=== PATIENT | female | born 1945 | race Caucasian/White ===

== ENCOUNTER 2016-11-13 08:53 | Outpatient (CLI) | payer MEDICARE, OTHER | END 2016-11-13 08:54 | disposition home or self-care (01) | DX: Z12.31 Encounter for screening mammogram for malignant neoplasm of breast (principal) ==

== ENCOUNTER 2016-11-13 09:13 | Outpatient (CLI) | payer MEDICARE, OTHER | END 2016-11-13 09:14 | disposition home or self-care (01) | DX: Z13.820 Encounter for screening for osteoporosis (principal); M85.88 Other specified disorders of bone density and structure, other site; N95.8 Other specified menopausal and perimenopausal disorders ==

== ENCOUNTER 2017-02-19 14:56 | Outpatient (CLI) | payer MEDICARE, OTHER ==
--- NOTE | 2017-02-20 12:22 | XRAY Report ---
REVISED: THIS REPORT WAS ORIGINALLY SIGNED ON 02/20/2017 @ 1235. ORDERING PROVIDER FIELD REVISED ON 02/25/2017. BILATERAL HIPS AND PELVIS: 02/19/2017 CLINICAL INDICATION: Hip pain, on prednisone. FINDINGS: Frontal view of the hips and pelvis and bilateral frogleg lateral views of the hips demonstrate mild bilateral hip osteoarthritis. Postoperative changes are seen in the pelvis and lumbar spine. There is no evidence of acute fracture or dislocation. IMPRESSION: MILD BILATERAL HIP OSTEOARTHRITIS. JOB #: [id number] EXT JOB #: [id number] MTDD
== END 2017-02-19 14:57 | disposition home or self-care (01) ==
LOC: DI 14:56
PROVIDERS: ATTEND Internal Medicine
DX: M16.0 Bilateral primary osteoarthritis of hip (principal); Z79.52 Long term (current) use of systemic steroids
CPT/HCPCS: 73521

== ENCOUNTER 2019-01-06 16:53 | Outpatient (CLI) | payer MEDICARE, OTHER ==
--- NOTE | 2019-01-07 09:04 | Mammography Report ---
Reason: SCREENING MAMMO Procedure Date: 01/06/2019 Accession Number: [id number] / [id number] Procedure: FRANKIE - Screening Mammo w/Sushant CPT Code: FULL RESULT: EXAM: Screening Mammo w/Sushant DATE: 01/06/2019 5:19 PM CLINICAL HISTORY: Screening encounter. History of estrogen therapy from 1976 until 1993. TECHNIQUE: (B) - Bilateral CC and MLO views were obtained. COMPARISON: 11/13/2016 through 06/28/2013. PARENCHYMAL PATTERN: (A) - The breast(s) demonstrate(s) scattered fibroglandular densities. FINDINGS: There are coarse typically benign calcifications. Postsurgical changes consistent with previous implant placement and subsequent removal are stable. There are no suspicious masses, calcifications, or areas of distortion. IMPRESSION: Benign findings. BI-RADS category 2. RECOMMENDATION: (ANNUAL) - Recommend routine annual screening mammography. BI-RADS CATEGORY: (2) - Benign Findings. STANDARD QUALIFYING STATEMENTS: 1. This examination was not reviewed with the aid of Computer-Aided Detection (CAD). 2. A negative or benign imaging report should not preclude biopsy if clinically suspicious findings are present. 3. Dense breasts may obscure an underlying neoplasm. 4. This examination was reviewed with the aid of 3D breast imaging (tomosynthesis).
== END 2019-01-06 16:54 | disposition home or self-care (01) ==
LOC: DI 16:53
DX: Z12.31 Encounter for screening mammogram for malignant neoplasm of breast (principal)
CPT/HCPCS: 77063; 77067

== ENCOUNTER 2019-03-02 | Emergency (ER) | payer MEDICARE, OTHER | END 2019-03-02 08:33 | disposition home or self-care (01) | DX: N30.00 Acute cystitis without hematuria (principal) | CPT/HCPCS: 81001; 87077; 87086; 87181; 99283; A9270; 81003 ==

== ENCOUNTER 2019-03-04 11:05 | Emergency (ER) | payer MEDICARE, OTHER ==
[2019-03-04 12:04] LABS: GLUCOSE, URINE (UA) NEGATIVE (NEGATIVE); KETONES,URINE (UA) NEGATIVE (NEGATIVE); LEUKOCYTE ESTERASE, URINE TRACE (NEGATIVE); NITRITE,URINE POSITIVE (NEGATIVE); OCCULT BLOOD,URINE LARGE (NEGATIVE); PROTEIN,URINE 100 mg/dL (NEGATIVE); UROBILINOGEN,URINE 0.2 (NORMAL) E.U./dL (NORMAL)
[2019-03-04 12:06] LABS: BILIRUBIN,URINE NEGATIVE (NEGATIVE); CLARITY,URINE CLOUDY (CLEAR); ICTOTEST,URINE NEGATIVE
[2019-03-04 12:37] LABS: AMORPHOUS SEDIMENT,UR Moderate /LPF; BACTERIA,URINE Few /HPF (None Seen); RBC,URINE TNTC /HPF (0-5); SQUAMOUS EPITHELIAL CELL,UR FEW Squamous (<= Few)
[2019-03-04 12:40] LABS: BASOPHILS # (AUTO) 0.1 10^3/uL (0.0-0.1); BASOPHILS % (AUTO) 0.6 %; EOSINOPHILS # (AUTO) 0.4 10^3/uL (0.0-0.7); EOSINOPHILS % (AUTO) 3.6 %; HGB - HEMOGLOBIN 13.4 g/dL (12.0-16.0); LYMPHOCYTES % (AUTO) 18.2 %; MEAN CORPUSCULAR HEMOGLOBIN 30.2 pg (27.0-31.0); MEAN CORPUSCULAR HGB CONC 31.9 g/dL (32.0-36.0); MEAN CORPUSCULAR VOLUME 94.8 fL (81.0-99.0); MEAN PLATELET VOLUME 9.1 fL (7.9-10.8); MONOCYTES # (AUTO) 0.5 10^3/uL (0.0-1.0); MONOCYTES % (AUTO) 4.6 %; NEUTROPHILS # (AUTO) 7.8 10^3/uL (1.5-6.6); NEUTROPHILS % (AUTO) 72.1 %; PLT - PLATELET COUNT 378 10^3/uL (130-450); RED BLOOD COUNT 4.43 10^6/uL (4.20-5.40); RED CELL DISTRIBUTION WIDTH 12.3 % (12.0-15.0); WHITE BLOOD COUNT 10.8 x10^3/uL (4.8-10.8)
[2019-03-04] MEDS ORDERED: ONDANSETRON 4 MG/2 ML VIAL IVP STA (12:50)
[2019-03-04] MEDS ORDERED: SODIUM CHLORIDE 0.9% 1,000 ML IV ONE (12:50)
[2019-03-04] MEDS ORDERED: cefTRIAXone 1 GM VIAL IVP STA (12:51)
--- NOTE | 2019-03-04 12:51 | ED Physician Documentation ---
PD HPI NVD - Stated complaint Stated Complaint: VOMITING - Chief complaint Chief Complaint: Abd Pain - History obtained from History obtained from: Patient - History of Present Illness Timing - onset: Yesterday, How many days ago (2-3) Timing - details: Gradual onset, Still present (she was seen for UTI and had some nausea prior to that. Given Rx for bactrim and zofran. Zofran not helping and she felt more nauseated with vomiting after taking the bactrim. Having emesis the past 2 days. Keeping some sips down.) Associated symptoms: Fever (2 days ago), Loss of appetite, Dysuria (still with UTI symptoms, as felt was vomiting the bactrim.). No: Abdominal pain, Near syncope / syncope Contributing factors: No: Sick contact, Bad food Similar symptoms before: Has not had sx before Recently seen: Emergency Dept (for UTI with nausea.) Review of Systems Constitutional: reports: Fever. denies: Myalgias Nose: denies: Rhinorrhea / runny nose, Congestion Throat: denies: Sore throat GI: reports: Nausea, Vomiting. denies: Diarrhea : reports: Dysuria, Frequency. denies: Hematuria Neurologic: reports: Generalized weakness. denies: Focal weakness, Numbness PD PAST MEDICAL HISTORY - Past Medical History Cardiovascular: None Respiratory: None Neuro: None Endocrine/Autoimmune: None : Chronic bladder infection, Renal insuffiency, Kidney stones - Past Surgical History Past Surgical History: Yes General: Hiatal hernia repair Ortho: Rotator cuff repair, Shoulder arthroplasty - Present Medications Home Medications: Ambulatory Orders Medication Instructions Recorded Confirmed Alprazolam [Alprazolam Xr] 0.5 mg PO PRN PRN 09/24/13 03/02/19 DULoxetine [Cymbalta] 60 mg PO DAILY 09/24/13 03/02/19 Simvastatin [Zocor] 10 mg PO DAILY 09/24/13 03/02/19 Hydrocodone/Acetaminophen 1 each PO QID 03/02/19 03/02/19 [Hydrocodon-Acetaminoph 7.5-325] Ondansetron Odt [Zofran] 4 mg TL Q6H PRN #10 tablet 03/02/19 Sulfamethox/Trimeth 800/160 1 each PO BID #14 tablet 03/02/19 [Bactrim Ds 800/160] Ciprofloxacin HCl [Cipro] 500 mg PO BID #14 tablet 03/04/19 Promethazine [Phenergan] 25 mg PO Q6H PRN #15 tab 03/04/19 - Allergies Allergies/Adverse Reactions: Allergies Allergy/AdvReac Type Severity Reaction Status Date / Time No Known Drug Allergies Allergy Verified 03/04/19 11:13 - Social History Does the pt smoke?: No Smoking Status: Never smoker Does the pt drink ETOH?: Yes Does the pt have substance abuse?: No - Immunizations Immunizations are current?: Yes PD ED PE NORMAL - Vitals Vital signs reviewed: Yes - General General: Alert and oriented X 3, No acute distress, Well developed/nourished - HEENT HEENT: Pharynx benign - Neck Neck: Supple, no meningeal sign, No adenopathy - Cardiac Cardiac: RRR, No murmur - Respiratory Respiratory: Clear bilaterally - Abdomen Abdomen: Soft, Non tender - Back Back: No CVA TTP - Derm Derm: Normal color, Warm and dry - Neuro Neuro: Alert and oriented X 3, No motor deficit, Normal speech Results - Vitals Vitals: Oxygen O2 Source Room air - Labs Labs: Microbiology 03/04/19 11:30 Urine Culture - Preliminary Urine,Clean Catch Laboratory Tests 03/04/19 03/04/19 03/04/19 11:30 12:32 12:32 WBC 10.8 RBC 4.43 Hgb 13.4 Hct 42.0 MCV 94.8 MCH 30.2 MCHC 31.9 L RDW 12.3 Plt Count 378 MPV 9.1 Neut # (Auto) 7.8 H Lymph # (Auto) 2.0 [place] # (Auto) 0.5 Eos # (Auto) 0.4 Baso # (Auto) 0.1 Absolute Nucleated RBC 0.00 Nucleated RBC % 0.0 Sodium 136 Potassium 4.9 Chloride 99 L Carbon Dioxide 24 Anion Gap 13.0 BUN 20 Creatinine 1.2 H Estimated GFR (MDRD) 44 L Glucose 147 H Calcium 9.6 Total Bilirubin 0.5 AST 24 ALT 36 Alkaline Phosphatase 112 Total Protein 8.2 Albumin 4.3 Globulin 3.9 Albumin/Globulin Ratio 1.1 Lipase 34 Urine Color BROWN Urine Clarity CLOUDY Urine pH 5.0 Ur Specific [place] >=1.030 H Urine Protein 100 H Urine Glucose (UA) NEGATIVE Urine Ketones NEGATIVE Urine Occult Blood LARGE H Urine Nitrite POSITIVE H Urine Bilirubin NEGATIVE Urine Urobilinogen 0.2 (NORMAL) Ur Leukocyte Esterase TRACE H Urine RBC TNTC H Urine WBC 6-10 H Ur Squamous Epith Cells FEW Squamous Amorphous Sediment Moderate Urine Bacteria Few Ur Microscopic Review INDICATED Urine Culture Comments INDICATED PD MEDICAL DECISION MAKING - ED course Complexity details: re-evaluated patient (improved with IV fluids and meds. Able to take oral fluids now. ), considered differential, d/w patient Departure - Departure Disposition: 01 Home, Self Care Clinical Impression: Urinary tract infection Qualifiers: Urinary tract infection type: acute cystitis Hematuria presence: without hematuria Qualified Code(s): N30.00 - Acute cystitis without hematuria Nausea & vomiting Qualifiers: Vomiting type: unspecified Vomiting Intractability: intractable Qualified Code(s): R11.2 - Nausea with vomiting, unspecified Condition: Stable Record reviewed to determine appropriate education?: Yes Instructions: ED UTI Cystitis Female, ED Nausea Vomiting Follow-Up: Warren Park MD [Primary Care Provider] - Prescriptions: Ciprofloxacin HCl [Cipro] 500 mg PO BID #14 tablet Promethazine [Phenergan] 25 mg PO Q6H PRN #15 tab PRN Reason: Nausea / Vomiting Comments: Small frequent cysts fluids. [place] food for the next day or 2. Ondansetron or promethazine as needed for nausea. Stop the Bactrim antibiotic and change to Cipro ofloxacin, since she said that has worked well for you in the past. Recheck if still not improved over the next couple of days. Discharge Date/Time: 03/04/19 15:31
[2019-03-04 12:54] LABS: ALBUMIN 4.3 g/dL (3.2-5.5); ALBUMIN/GLOBULIN RATIO 1.1 (1.0-2.2); BILIRUBIN,TOTAL 0.5 mg/dL (0.2-1.0); CALCIUM 9.6 mg/dL (8.5-10.3); CREATININE 1.2 mg/dL (0.4-1.0); TOTAL PROTEIN 8.2 g/dL (6.7-8.2)
[2019-03-04] MEDS ORDERED: FAMOTIDINE 20 MG/2 ML VIAL IVP STA (14:02)
[2019-03-04] MEDS ORDERED: PROMETHAZINE INJ 25 MG in SODIUM CHLORIDE 0.9% 50 ML IV STA (14:02)
[2019-03-04 15:26] VITALS: BP 119/68
== END 2019-03-04 15:31 | disposition home or self-care (01) ==
LOC: ED 11:05
DX: N30.00 Acute cystitis without hematuria (principal); R11.2 Nausea with vomiting, unspecified
CPT/HCPCS: 36415; 80053; 81001; 83690; 85025; 87077; 87086; 87181; 96361; 96365; 96375; 99284; J7040; 81003

== ENCOUNTER 2020-04-13 14:10 | Outpatient (CLI) | payer MEDICARE, OTHER | END 2020-04-13 14:11 | disposition home or self-care (01) | LOC: COV 14:10 | PROVIDERS: ATTEND Ophthalmology | DX: Z01.818 Encounter for other preprocedural examination (principal); H25.812 Combined forms of age-related cataract, left eye; Z20.828 Contact with and (suspected) exposure to other viral communicable diseases ==

== ENCOUNTER 2020-04-19 09:26 | Day surgery (SDC) | payer MEDICARE, OTHER ==
[~2020-04-19 09:26] MED LIST: CYCLOPENTOLATE 1% OPHTH DROPS 2 ML ONE; KETOROLAC 0.45% OPHTH DROPS ONE; PHENYLEPHRINE 2.5% OPHTH 2 ML DROPS ONE; PROPARACAINE 0.5% OPHTH DROPS 15 ML ONE
[2020-04-19] MEDS ORDERED: MIDAZOLAM 2 MG/2 ML VIAL IVP ONE (09:27)
[2020-04-19] MEDS ORDERED: LACTATED RINGERS 500 ML IV ONE ×2 (10:05→11:01)
--- NOTE | 2020-04-19 10:08 | ANESTHESIA ---
Pre-Anesthesia VS, & Labs - Diagnosis left cataract - Procedure left CATIOL Height: 5 ft 4 in Weight (kg): 73.5 kg Body Mass Index: 27.8 BMI Classification: Overweight - NPO >8 hours - Is Patient ?: No Home Medications and Allergies Home Medications: Ambulatory Orders Diphenoxylate/Atropine [Lomotil] 1 PRN 04/19/20 Alprazolam [Alprazolam Xr] 0.5 mg PO PRN PRN 09/24/13 DULoxetine [Cymbalta] 60 mg PO DAILY 09/24/13 Simvastatin [Zocor] 10 mg PO DAILY 09/24/13 Hydrocodone/Acetaminophen [Hydrocodon-Acetaminoph 7.5-325] 1 each PO QID 03/02/19 Diphenoxylate/Atropine [Lomotil] 1 PRN 04/19/20 Allergies/Adverse Reactions: Allergies Allergy/AdvReac Type Severity Reaction Status Date / Time No Known Drug Allergies Allergy Verified 03/04/19 11:13 Anes History & Medical History - Anesthetic History Anesthesia Complications: reports: No previous complications Family history of Anesthesia Complications: Denies Family history of Malignant Hyperthermia: Denies - Medical History Cardiovascular: reports: High cholesterol, Arrhythmia Pulmonary: reports: None Gastrointestinal: reports: None Urinary: reports: Kidney stones Neuro: reports: None Musculoskeletal: reports: Osteoarthritis, Fibromyalgia Endocrine/Autoimmune: reports: None Skin: reports: None Smoking Status: Never smoker - Surgical History General: Bowel surgery, Other Urologic: Ureterolithotomy (stones) Gynecologic: Hysterectomy Orthopedic: Rotator cuff repair, Shoulder arthroplasty, Spine surgery Exam General: Alert, Oriented x3, Cooperative, No acute distress Dental: WNL Mouth Openin Fingerbreadth Neck Mobility: Normal Mallampati classification: II Respiratory: Lungs clear, Normal breath sounds, No respiratory distress, No accessory muscle use Cardiovascular: Regular rate, Normal S1, Normal S2, No murmurs Plan Anesthesia Type: MAC Consent for Procedure(s) Verified and Reviewed: Yes Code Status: Attempt Resuscitation ASA classification: 2-Mild systemic disease Is this case an emergency?: No
[2020-04-19] MEDS ORDERED: BRIMONIDINE 0.2% OPHTH DROPS 5 ML OPTH ONE (10:54)
[2020-04-19] MEDS ORDERED: CHONDR SULF/HYALURONATE SYRINGE IO ONE (10:54)
[2020-04-19] MEDS ORDERED: TIMOLOL 0.5% OPHTH DROPS OPTH ONE (10:54)
[2020-04-19] MEDS ORDERED: EPINEPHrine 1 MG/ML AMP IR ONE (10:54)
[2020-04-19] MEDS ORDERED: TRIAMCIN/MOXIFLOX OPHTHALMIC 0.6 ML VIAL IO ONE (10:55)
[2020-04-19] MEDS ORDERED: BSS/LIDOCAINE/EPINEPHRINE 1 ML SYRINGE IO ONE (10:55)
[2020-04-19] MEDS ORDERED: PROPARACAINE 0.5% OPHTH DROPS 15 ML EACHEYE ONE (10:55)
[2020-04-19] MEDS ORDERED: VANCOMYCIN OPHTHALMI 8MG/0.8ML 8 MG/0.8 ML SYRINGE IO ONE (10:55)
[2020-04-19 11:20] VITALS: BP 107/51
--- NOTE | 2020-04-19 11:47 | ANESTHESIA POST OP EVALUATION ---
Anesthesia Post Eval - Post Anesthesia Eval Vitals: Last Vital Signs Temp 36.2 C L 04/19/20 11:19 Pulse 92 04/19/20 11:19 Resp 16 04/19/20 11:19 BP 107/51 L 04/19/20 11:19 Pulse Ox 97 04/19/20 11:19 CV Function Including HR & BP: positive: Stable Pain Control: positive: Satisfactory Nausea & Vomiting: positive: Negative Mental Status: positive: Baseline Respiratory Status: Airway Patent Hydration Status: Satisfactory Anesthesia Complications: positive: None
[2020-04-19] MEDS ORDERED: BSS/LIDOCAINE/EPINEPHRINE 1 ML SYRINGE ONE (12:28)
[2020-04-19] MEDS ORDERED: TIMOLOL 0.5% OPHTH DROPS ONE (12:28)
[2020-04-19] MEDS ORDERED: BRIMONIDINE 0.2% OPHTH DROPS 5 ML ONE (12:29)
--- NOTE | 2020-04-19 12:52 | OPERATIVE REPORT ---
DATE OF SERVICE: 04/19/2020 Physician: Buzz Low MD PREOPERATIVE DIAGNOSIS: Visually significant cataract, left eye. This was her first cataract surger y. POSTOPERATIVE DIAGNOSIS: Visually significant cataract, left eye. This was her first cataract surge ry. PROCEDURE: Phacoemulsification with posterior chamber intraocular lens implant, left eye. SURGEON: Buzz Low MD ANESTHESIA: Monitored anesthesia care. COMPLICATIONS: None. OPERATIVE INDICATIONS: This is a 74-year-old woman with progressive vision loss in the left eye due to 2+ nuclear sclerotic and 2+ posterior subcapsular cataract. Best corrected visual acuity was 20/3 0, with glare to hand motion vision in the left eye. Indications for surgery were overall decrease i n vision, difficulty seeing words, closed caption or game scores on TV, difficulty seeing street sign s, difficulty driving in low light or at night, difficulty driving at night because of headlights fro m other vehicles, and difficulty with glare or bright lights in any situation. She was consented at length concerning risks and benefits of cataract surgery, after which she expressed a desire to proce ed with surgery. OPERATIVE PROCEDURE: Patient was taken to OR #3 and placed under monitored anesthesia care and surgi miroslava timeout was conducted confirming correct patient, correct procedure, and correct surgical site. She was given topical anesthesia, and prepped and draped in the usual sterile fashion. The eye was e ntered at the 6 and 3 o'clock positions. Intracameral Shugarcaine was injected into the anterior olivia mber, followed by Viscoat. A continuous-tear curvilinear capsulorrhexis was performed. The nucleus was hydrodissected and phacoemulsified. The cortex was evacuated using automated infusion and aspira tion. Provisc was injected in the capsular bag, and a 19.5 diopter intraocular lens was inserted int o the bag. Infusion and aspiration was used to evacuate the viscoelastic materials. The eye was inf lated to physiologic pressure using balanced salt solution and found to be watertight. Approximately 0.25 mL of a mixture of triamcinolone and moxifloxacin was injected transsclerally into the vitreous in the inferotemporal quadrant. An additional 0.55 mL of a mixture of triamcinolone, moxifloxacin a nd vancomycin was injected subconjunctivally in the superior quadrant for infection and inflammation prophylaxis. Wound integrity was checked with Weck-Delmis sponges. Patient was taken from the Operatin g Room in good condition and given postoperative instructions. TD: 04/19/2020 11:06
== END 2020-04-19 09:27 | disposition home or self-care (01) ==
LOC: SDS 09:26
PROVIDERS: ATTEND Ophthalmology
DX: H25.812 Combined forms of age-related cataract, left eye (principal); E78.00 Pure hypercholesterolemia, unspecified; M79.7 Fibromyalgia; F41.9 Anxiety disorder, unspecified; Z79.891 Long term (current) use of opiate analgesic; Z87.891 Personal history of nicotine dependence
CPT/HCPCS: 66984; A9270; J3490; J7120; V2632

== ENCOUNTER 2020-09-17 17:19 | Outpatient (CLI) | payer MEDICARE, OTHER | END 2020-09-17 17:20 | disposition home or self-care (01) | LOC: COV 17:19 | PROVIDERS: ATTEND Ophthalmology | DX: Z01.812 Encounter for preprocedural laboratory examination (principal); H43.819 Vitreous degeneration, unspecified eye; Z20.822 Contact with and (suspected) exposure to COVID-19 ==

== ENCOUNTER 2021-02-12 12:31 | Emergency (ER) | payer MEDICARE, OTHER ==
[2021-02-12 13:02] LABS: BASOPHILS # (AUTO) 0.1 10^3/uL (0.0-0.1); BASOPHILS % (AUTO) 0.5 %; EOSINOPHILS % (AUTO) 0.2 %; HCT - HEMATOCRIT 41.2 % (37.0-47.0); HGB - HEMOGLOBIN 13.2 g/dL (12.0-16.0); LYMPHOCYTES # (AUTO) 1.2 10^3/uL (1.5-3.5); LYMPHOCYTES % (AUTO) 6.1 %; MEAN CORPUSCULAR HEMOGLOBIN 29.9 pg (27.0-31.0); MEAN CORPUSCULAR VOLUME 93.2 fL (81.0-99.0); MEAN PLATELET VOLUME 8.9 fL (7.9-10.8); MONOCYTES # (AUTO) 1.1 10^3/uL (0.0-1.0); MONOCYTES % (AUTO) 5.5 %; NEUTROPHILS # (AUTO) 17.7 10^3/uL (1.5-6.6); NEUTROPHILS % (AUTO) 87.4 %; PLT - PLATELET COUNT 339 10^3/uL (130-450); RED BLOOD COUNT 4.42 10^6/uL (4.20-5.40); RED CELL DISTRIBUTION WIDTH 12.9 % (12.0-15.0); WHITE BLOOD COUNT 20.2 x10^3/uL (4.8-10.8)
[2021-02-12 13:05] LABS: SLIDE REVIEW? Indicated
[2021-02-12 13:13] LABS: BILIRUBIN,URINE NEGATIVE (NEGATIVE); CLARITY,URINE SL. CLOUDY (CLEAR); GLUCOSE, URINE (UA) NEGATIVE (NEGATIVE); KETONES,URINE (UA) NEGATIVE (NEGATIVE); LEUKOCYTE ESTERASE, URINE TRACE (NEGATIVE); NITRITE,URINE POSITIVE (NEGATIVE); OCCULT BLOOD,URINE LARGE (NEGATIVE); PROTEIN,URINE 30 mg/dL (NEGATIVE); UROBILINOGEN,URINE 0.2 (NORMAL) E.U./dL (NORMAL)
[2021-02-12 13:16] LABS: ALBUMIN 4.3 g/dL (3.2-5.5); ALBUMIN/GLOBULIN RATIO 1.3 (1.0-2.2); BILIRUBIN,TOTAL 0.7 mg/dL (0.2-1.0); CREATININE 1.2 mg/dL (0.4-1.0); POTASSIUM 4.4 mmol/L (3.5-5.0); TOTAL PROTEIN 7.7 g/dL (6.7-8.2)
[2021-02-12 13:17] LABS: RBC MORPHOLOGY (MULTIPLE) 1+ ANISOCYTOSIS (NORMAL)
[2021-02-12 13:21] LABS: BACTERIA,URINE Few /HPF (None Seen); RBC,URINE TNTC /HPF (0-5); SQUAMOUS EPITHELIAL CELL,UR FEW Squamous (<= Few)
--- NOTE | 2021-02-12 13:43 | ED Physician Documentation ---
History of Present Illness - Stated complaint Stated Complaint: FEMALE - Chief complaint Chief Complaint: Abd Pain - Additonal information Additional information: 75-year-old female presents the emergency department for evaluation of dysuria and right flank pain. Symptoms began last night. She did begin taking a leftover prescription for ciprofloxacin which she previously had. She does endorse a history of recurrent nephro and ureterolithiasis but reports that this pain feels different. She has been vomiting. Subjective fevers. She denies chest pain or shortness of air. Review of Systems Constitutional: reports: Fever, Myalgias. denies: Chills Eyes: reports: Reviewed and negative Nose: reports: Reviewed and negative Throat: reports: Reviewed and negative Cardiac: reports: Reviewed and negative Respiratory: reports: Reviewed and negative GI: reports: Abdominal Pain, Nausea, Vomiting, Reviewed and negative : reports: Dysuria, Frequency Skin: reports: Reviewed and negative Musculoskeletal: reports: Reviewed and negative PD PAST MEDICAL HISTORY - Past Medical History Cardiovascular: None Respiratory: None Neuro: None Endocrine/Autoimmune: None : Chronic bladder infection, Renal insuffiency, Kidney stones - Past Surgical History Past Surgical History: Yes General: Hiatal hernia repair Ortho: Rotator cuff repair, Shoulder arthroplasty - Present Medications Home Medications: Ambulatory Orders Medication Instructions Recorded Confirmed Alprazolam [Alprazolam Xr] 0.5 mg PO PRN PRN 09/24/13 02/12/21 DULoxetine [Cymbalta] 60 mg PO DAILY 09/24/13 02/12/21 Simvastatin [Zocor] 10 mg PO DAILY 09/24/13 02/12/21 Hydrocodone/Acetaminophen 1 each PO QID 03/02/19 02/12/21 [Hydrocodon-Acetaminoph 7.5-325] - Allergies Allergies/Adverse Reactions: Allergies Allergy/AdvReac Type Severity Reaction Status Date / Time No Known Drug Allergies Allergy Verified 02/12/21 12:33 - Social History Does the pt smoke?: No Smoking Status: Never smoker Does the pt drink ETOH?: Yes Does the pt have substance abuse?: No - Immunizations Immunizations are current?: Yes PD ED PE NORMAL - General General: Alert and oriented X 3, No acute distress - Neck Neck: Supple, no meningeal sign - Cardiac Cardiac: RRR, No murmur - Respiratory Respiratory: Clear bilaterally - Abdomen Abdomen: Normal bowel sounds, Soft. No: Non tender (Mild right flank tenderness without guarding or rebound.) - Back Back: No CVA TTP, No spinal TTP - Derm Derm: Normal color, Warm and dry - Extremities Extremities: No deformity - Neuro Neuro: Alert and oriented X 3 Results - Vitals Vitals: Vital Signs - 24 hr 02/12/21 02/12/21 02/12/21 12:33 14:38 16:00 Temperature 36.6 C Heart Rate 100 92 80 Respiratory 16 17 17 Rate Blood Pressure 134/58 H 110/58 L 102/54 L O2 Saturation 95 97 100 02/12/21 02/12/21 02/12/21 16:53 17:23 18:00 Temperature 38.4 C H 38.3 C H Heart Rate 94 93 90 Respiratory 16 17 18 Rate Blood Pressure 124/58 L 129/41 L 120/56 L O2 Saturation 96 95 94 02/12/21 02/12/21 02/12/21 18:30 19:00 19:30 Temperature Heart Rate 78 71 92 Respiratory 18 17 18 Rate Blood Pressure 118/45 L 127/62 121/50 L O2 Saturation 99 99 99 02/12/21 02/12/21 20:00 20:32 Temperature 37.7 C Heart Rate 94 93 Respiratory 17 Rate Blood Pressure 100/45 L 94/41 L O2 Saturation 97 96 Oxygen O2 Source Room air - Labs Labs: Laboratory Tests 02/12/21 02/12/21 02/12/21 12:50 12:57 12:57 WBC 20.2 H RBC 4.42 Hgb 13.2 Hct 41.2 MCV 93.2 MCH 29.9 MCHC 32.0 RDW 12.9 Plt Count 339 MPV 8.9 Neut # (Auto) 17.7 H Lymph # (Auto) 1.2 L [place] # (Auto) 1.1 H Eos # (Auto) 0.0 Baso # (Auto) 0.1 Absolute Nucleated RBC 0.00 Nucleated RBC % 0.0 Manual Slide Review Indicated RBC Morph Micro Appear 1+ ANISOCYTOSIS Sodium 137 Potassium 4.4 Chloride 102 Carbon Dioxide 19 L Anion Gap 16.0 H BUN 20 Creatinine 1.2 H Estimated GFR (MDRD) 44 L Glucose 222 H Lactic Acid Calcium 9.0 Total Bilirubin 0.7 AST 20 ALT 37 Alkaline Phosphatase 84 Total Protein 7.7 Albumin 4.3 Globulin 3.4 Albumin/Globulin Ratio 1.3 Lipase 25 Urine Color YELLOW Urine Clarity SL. CLOUDY Urine pH 5.0 Ur Specific [place] >=1.030 H Urine Protein 30 H Urine Glucose (UA) NEGATIVE Urine Ketones NEGATIVE Urine Occult Blood LARGE H Urine Nitrite POSITIVE H Urine Bilirubin NEGATIVE Urine Urobilinogen 0.2 (NORMAL) Ur Leukocyte Esterase TRACE H Urine RBC TNTC H Urine WBC 4-5 Ur Squamous Epith Cells FEW Squamous Urine Bacteria Few Ur Microscopic Review INDICATED Urine Culture Comments INDICATED Nasal Adenovirus (PCR) Nasal B. parapertussis DNA (PCR) Nasal Coronavir 229E PCR Nasal Coronavir HKU1 PCR Nasal Coronavir NL63 PCR Nasal Coronavir OC43 PCR Nasal Enterovir/Rhinovir PCR Nasal Influenza B PCR Nasal Influenza A PCR Nasal Parainfluen 1 PCR Nasal Parainfluen 2 PCR Nasal Parainfluen 3 PCR Nasal Parainfluen 4 PCR Nasal RSV (PCR) Nasal B.pertussis DNA PCR Nasal C.pneumoniae (PCR) [place] Human Metapneumo PCR Nasal M.pneumoniae (PCR) Nasal SARS-CoV-2 (PCR) 02/12/21 02/12/21 16:44 16:52 WBC RBC Hgb Hct MCV MCH MCHC RDW Plt Count MPV Neut # (Auto) Lymph # (Auto) [place] # (Auto) Eos # (Auto) Baso # (Auto) Absolute Nucleated RBC Nucleated RBC % Manual Slide Review RBC Morph Micro Appear Sodium Potassium Chloride Carbon Dioxide Anion Gap BUN Creatinine Estimated GFR (MDRD) Glucose Lactic Acid 1.4 Calcium Total Bilirubin AST ALT Alkaline Phosphatase Total Protein Albumin Globulin Albumin/Globulin Ratio Lipase Urine Color Urine Clarity Urine pH Ur Specific [place] Urine Protein Urine Glucose (UA) Urine Ketones Urine Occult Blood Urine Nitrite Urine Bilirubin Urine Urobilinogen Ur Leukocyte Esterase Urine RBC Urine WBC Ur Squamous Epith Cells Urine Bacteria Ur Microscopic Review Urine Culture Comments Nasal Adenovirus (PCR) NOT DETECTED Nasal B. parapertussis DNA (PCR) NOT DETECTED Nasal Coronavir 229E PCR NOT DETECTED Nasal Coronavir HKU1 PCR NOT DETECTED Nasal Coronavir NL63 PCR NOT DETECTED Nasal Coronavir OC43 PCR NOT DETECTED Nasal Enterovir/Rhinovir PCR NOT DETECTED Nasal Influenza B PCR NOT DETECTED Nasal Influenza A PCR NOT DETECTED Nasal Parainfluen 1 PCR NOT DETECTED Nasal Parainfluen 2 PCR NOT DETECTED Nasal Parainfluen 3 PCR NOT DETECTED Nasal Parainfluen 4 PCR NOT DETECTED Nasal RSV (PCR) NOT DETECTED Nasal B.pertussis DNA PCR NOT DETECTED Nasal C.pneumoniae (PCR) NOT DETECTED [place] Human Metapneumo PCR NOT DETECTED Nasal M.pneumoniae (PCR) NOT DETECTED Nasal SARS-CoV-2 (PCR) NOT DETECTED - Rads (name of study) Ct abd/pelvis Radiology: Final report received, See rad report, Other (Obstructing urinary stone in mid to distal right ureter with mild hydronephrosis. 2 additional stones within the renal pelvis. Mild right urothelial thickening and perinephric stranding nonspecific may be associated with pyelonephritis.) PD MEDICAL DECISION MAKING - ED course Complexity details: reviewed results, re-evaluated patient, d/w patient ED course: 75-year-old female presents emergency department for evaluation of acute right flank pain chills vomiting and concerned that she may have a urinary tract infection. She began taking ciprofloxacin yesterday. She does also have a history of previous right staghorn calculi that required lithotripsy about 4 ye ars ago and then for a brief period of time a right-sided nephrostomy tube. Today screening labs show fairly significant leukocytosis of 20,000. Patient does not have fever hypotension or tachycardia thus does not present as septic. Her urine is somewhat muddy to interpret as she has started taking antibiotics but is certainly nitrite positive with rare bacteria. She was given 1 g of ceftriaxone here. Given the history of previous nephrolithiasis a CT of the abdomen was obtained and it does show fairly large right proximal ureter stone with mild to moderate hydronephrosis. There is a small amount of perinephric stranding acute pyelonephritis is not ruled out. I have spoken with NNEKA montgomery at [facility] urology. They do accept the patient in transfer for planned stenting tomorrow at [facility]. Awaiting excepting hospitalist and bed. I have discussed the plan with the patient and her and they are in agreement. Appropriate COBRA paperwork will be completed. 1640: I have spoken with Dr. Lisa briceno at [facility] who has accepted patient. She has now developed a fever. Blood cx are pending. lactate is not elevated Departure - Departure Disposition: 02 Transfer Acute Care Hosp Clinical Impression: Urethral calculus Hydronephrosis Qualifiers: Hydronephrosis type: with ureteral calculous obstruction Qualified Code(s): N13.2 - Hydronephrosis with renal and ureteral calculous obstruction UTI (urinary tract infection) Qualifiers: Urinary tract infection type: acute cystitis Hematuria presence: with hematuria Qualified Code(s): N30.01 - Acute cystitis with hematuria Discharge Date/Time: 02/12/21 20:46
[2021-02-12] MEDS ORDERED: IOVERSOL 320 100 ML VIAL IVP ONE (13:51)
[2021-02-12] MEDS: HYDROmorphone 1 MG/ML CARPUJECT IVP STA ×3 (14:14→20:46)
[2021-02-12] MEDS: SODIUM CHLORIDE 0.9% 1,000 ML IV STA (14:14)
[2021-02-12] MEDS: IOVERSOL 320 100 ML VIAL IVP ONE (14:33)
[2021-02-12] MEDS: cefTRIAXone 1 GM in SODIUM CHLORIDE 0.9% MINIBAG 100 ML IV STA (15:01)
--- NOTE | 2021-02-12 15:11 | CT Report ---
PROCEDURE: Abdomen/Pelvis W INDICATIONS: dysuria, right flank pain; ? pyelo vs urolithia CONTRAST: IV CONTRAST: Optiray 320 ml: 100 PO CONTRAST: *NO PO CONTRAST TECHNIQUE: After the administration of intravenous contrast, 5 mm thick sections acquired from the diaphragms to the symphysis. 5 mm thick coronal and sagittal reformats were acquired. For radiation dose reducti on, the following was used: automated exposure control, adjustment of mA and/or kV according to vicente ent size. COMPARISON: None. FINDINGS: Image quality: There is metallic streak artifact from patient's surgical hardware in the lower lumbar spine. There are partially visualized calcified mediastinal and hilar lymph nodes as well as a calci fied nodule within the inferior right middle lobe consistent with sequelae of old granulomatous disea se. ABDOMEN: Lung bases: There are patchy small indistinct round glass opacities within the right lung base with c onfluence posteriorly in the right lower lobe. There is associated mild septal thickening. Heart size is normal. Solid organs: There is mild hypoattenuation of the liver compatible with mild fat infiltration. A ca lcified nodule in the right hepatic lobe is consistent sequelae of old granulomatous disease. Gallbla dder appears within normal limits without calcified gallstones. Biliary system is non dilated. Pancr eas enhances normally. No adrenal nodules. There is an uncertain stone within the mid to distal right ureter measuring up to 0.9 cm with associa suma mild right hydronephrosis. This demonstrates attenuation values of approximately 700-800 Hounsfie ld units. There are 2 additional urinary stones within the right renal pelvis, measuring up to 2.0 cm and 1.2 cm. These demonstrate attenuation values of approximately 500-600 Hounsfield units. There is mild urothelial thickening in the right renal cortical system as well as mild asymmetric right perin ephric stranding. No definite striated nephrograms. No intrarenal or perinephric fluid collections. N o left renal stones or left hydronephrosis. Left ureter is nondistended. Peritoneum and bowel: Postsurgical changes are demonstrated consistent with subtotal colectomy with ileorectal anastomosis. Bowel sutures are also demonstrated in the right mid abdomen. Bowel loops dem onstrate normal wall thickness. There is a mildly dilated segment of small bowel in the right mid abd omen with air-fluid levels without definite evidence of obstruction. The findings suggest a mild ileu s. No free fluid or air. Nodes and vessels: No retroperitoneal or mesenteric adenopathy by size criteria. Aorta and inferior vena cava are normal in size. Miscellaneous: No ventral hernias. PELVIS: Genitourinary: Bladder wall thickness is normal. Miscellaneous: No inguinal hernias or adenopathy. Bones: Postsurgical changes are demonstrated status post posterior fixation in the lower lumbar spin e at L4-S1. No suspicious bony lesions. No vertebral body compression fractures. IMPRESSION: 1. Obstructing urinary stone in the mid to distal right ureter with mild right hydronephrosis. 2 hien tional stones are demonstrated within the right renal pelvis with associated mild pelvic distention. 2. Mild right urothelial thickening and perinephric stranding are nonspecific. The findings may be re active secondary to obstruction and no striated nephrograms are demonstrated but pyelonephritis canno t be fully excluded. Recommend correlation clinically. 3. Postsurgical changes demonstrated consistent with prior subtotal colectomy. A mild patulous segmen t of small bowel is demonstrated in the right mid abdomen adjacent to surgical sutures. No definite b owel obstruction. 4. Patchy groundglass opacities in the right lung base with confluence posteriorly in the right lower lobe. The findings are nonspecific but likely represent pneumonia including from atypical viral etio logies. Recommend correlation clinically. Reviewed by: Awais Bennett MD on 02/12/2021 3:10 PM PDT Approved by: Awais Bennett MD on 02/12/2021 3:10 PM PDT Station ID: [id number]
[2021-02-12 17:47] LABS: B. PARAPERTUSSIS- RESP PCR PAN NOT DETECTED; B. PERTUSSIS- RESP PCR PANEL NOT DETECTED; C. PNEUMONIAE- RESP PCR PANEL NOT DETECTED; CORONAVIRUS 229E-RESP PCR NOT DETECTED; CORONAVIRUS HKU1-RESP PCR NOT DETECTED; CORONAVIRUS NL63-RESP PCR NOT DETECTED; CORONAVIRUS OC43-RESP PCR NOT DETECTED; HUMAN METAPNEUMOVIRUS NOT DETECTED; INFLUENZA A- RESP PCR PANEL NOT DETECTED; INFLUENZA B - RESP PCR PANEL NOT DETECTED; M. PNEUMONIAE- RESP PCR PANEL NOT DETECTED; PARAINFLUENZA VIRUS 1 NOT DETECTED; PARAINFLUENZA VIRUS 2 NOT DETECTED; PARAINFLUENZA VIRUS 3 NOT DETECTED; PARAINFLUENZA VIRUS 4 NOT DETECTED; RHINOVIRUS/ENTEROVIRUS NOT DETECTED; RSV- RESP PCR PANEL NOT DETECTED; SARS-CoV-2 -RESP PCR PANEL NOT DETECTED
[2021-02-12] MEDS: ONDANSETRON 4 MG/2 ML VIAL IVP STA (18:18)
[2021-02-12] MEDS ORDERED: cefTRIAXone 1 GM VIAL ONE (19:06)
[2021-02-12] MEDS: ACETAMINOPHEN 325 MG TABLET PO STA (19:12)
[2021-02-12 20:32] VITALS: BP 94/41
== END 2021-02-12 20:46 | disposition short-term general hospital (02) ==
LOC: ED 12:31
DX: N13.2 Hydronephrosis with renal and ureteral calculous obstruction (principal); N30.01 Acute cystitis with hematuria; Z87.442 Personal history of urinary calculi; Z20.822 Contact with and (suspected) exposure to COVID-19
CPT/HCPCS: 36415; 74177; 80053; 81001; 83605; 83690; 85025; 87040; 87086; 87631; 96365; 96375; 96376; 99284; 99285; A9270; J1170; Q9967; 0202U; 81003

== ENCOUNTER 2021-10-19 08:00 | Outpatient (CLI) | payer MEDICARE, OTHER ==
[2021-10-19 18:14] LABS: BILIRUBIN,URINE SMALL (NEGATIVE); GLUCOSE, URINE (UA) NEGATIVE (NEGATIVE); KETONES,URINE (UA) NEGATIVE (NEGATIVE); LEUKOCYTE ESTERASE, URINE NEGATIVE (NEGATIVE); NITRITE,URINE NEGATIVE (NEGATIVE); OCCULT BLOOD,URINE NEGATIVE (NEGATIVE); PROTEIN,URINE TRACE mg/dL (NEGATIVE); UROBILINOGEN,URINE 0.2 (NORMAL) E.U./dL (NORMAL)
[2021-10-19 18:34] LABS: BACTERIA,URINE Many /HPF (None Seen); CLARITY,URINE CLOUDY (CLEAR); RBC,URINE 0-5 /HPF (0-5); SQUAMOUS EPITHELIAL CELL,UR FEW Squamous (<= Few)
[2021-10-19 18:35] LABS: CASTS, URINE 0-2 Hyaline Casts /LPF
[2021-10-19 20:42] LABS: BACTERIAL VAGINOSIS DNA NEGATIVE (NEGATIVE); CANDIDA GLABRATA DNA NEGATIVE (NEGATIVE); CANDIDA GROUP DNA NEGATIVE (NEGATIVE); CANDIDA KRUSEI DNA NEGATIVE (NEGATIVE); TRICHOMONAS VAGINALIS DNA NEGATIVE (NEGATIVE)
== END 2021-10-19 23:59 | disposition home or self-care (01) ==
LOC: LAB.S 08:00
PROVIDERS: ATTEND Emergency Medicine
DX: N76.0 Acute vaginitis (principal); R10.31 Right lower quadrant pain; R30.0 Dysuria
CPT/HCPCS: 81001; 87077; 87086; 87181; 87661; 87801

== ENCOUNTER 2023-09-16 09:52 | Outpatient (CLI) | payer MEDICARE, OTHER ==
[2023-09-16 10:17] LABS: ALBUMIN 4.5 g/dL (3.2-5.5); ALBUMIN/GLOBULIN RATIO 1.8 (1.0-2.2); BILIRUBIN,TOTAL 0.4 mg/dL (0.2-1.0); CALCIUM 9.5 mg/dL (8.5-10.3); CREATININE 1.2 mg/dL (0.6-1.3)
== END 2023-09-16 09:53 | disposition home or self-care (01) ==
LOC: LAB 09:52
PROVIDERS: ATTEND Family Medicine
DX: E78.00 Pure hypercholesterolemia, unspecified (principal)
CPT/HCPCS: 36415; 80053